=== PATIENT | female | born 1980 | race Caucasian/White ===

== ENCOUNTER → 2017-06-27 | Outpatient (CLI) | payer OTHER ==
[2015-06-09 16:06] VITALS: BMI 45.2
[~2017-06-27] MED LIST: ACET-1718 PO; BUPR-126 PO; DOCU100C49 PO; ESC10 FT; IBUP600T22 PO; IBUP800T37 PO; NORG1TAB94 PO; PREN-162 PO; VALA100059 PO
--- NOTE | 2017-06-27 15:30 | RADIOLOGY IMAGING REPORT ---
FACILITY: [facility] PATIENT NAME: Thi Juarez : 1980 MR: [id number] V: [id number] EXAM DATE: ORDERING PHYSICIAN: JAXSON OJEDA TECHNOLOGIST: Location: [facility] Patient: Thi Juarez : 1980 Visit/Account:[id number] Date of Sevice: 06/27/2017 EXAMINATION: Chest radiographs 2 views HISTORY: Cough. Recently had the flu. COMPARISON: None. FINDINGS: PA and lateral views of the chest are submitted. Lines/tubes: None. Lungs/pleura: No focal consolidation or pleural effusion. Heart: Negative. Mediastinum: Negative. Bony structures/body wall: Negative. IMPRESSION: No radiographic evidence of acute cardiopulmonary disease. Report Dictated By: Vandana José MD at 06/27/2017 3:25 PM Report E-Signed By: Vandana José MD at 06/27/2017 3:26 PM WSN:[id number]
== END ==
LOC: RAD 14:59
PROVIDERS: ATTEND Obstetrics & Gynecology
DX: R05 Cough (principal)
CPT/HCPCS: 71046

== ENCOUNTER → 2017-06-27 | Outpatient (REF) | payer OTHER ==
[2015-06-09 16:06] VITALS: BMI 45.2
[2017-06-27 15:00] LABS: PLATELET COUNT, AUTOMATED 310 K/uL (150-450)
== END ==
LOC: ZZSENDIN 14:47
PROVIDERS: ATTEND Obstetrics & Gynecology
DX: R05 Cough (principal); R06.02 Shortness of breath
CPT/HCPCS: 85007; 85027